=== PATIENT | female | born 1945 | race Caucasian/White ===

== ENCOUNTER 2018-12-09 08:16 | Inpatient (IN) ==
[2018-12-09] MEDS ORDERED: dilTIAZem HCl 5 MG/ML 5 ML VIAL IV STA (08:30)
[2018-12-09] MEDS ORDERED: dilTIAZem HCl 5 MG/ML 5 ML VIAL IV ONE (08:31)
[2018-12-09 08:47] LABS: Basophils # (auto) 0.01 K/uL (0-0.2); Basophils % (auto) 0.3 %; Eosinophils # (auto) 0.09 K/uL (0-0.5); Hematocrit (blood only) 43.1 % (37-47); Immature Granulocytes # (auto) 0.01 K/uL (0.00-0.02); Immature Granulocytes % (auto) 0.3 %; Lymphocytes # (auto) 0.86 K/uL (1.2-3.4); Lymphocytes % (auto) 28.6 %; Mean Corpuscular Hgb Conc 34.8 g/dL (32-36); Mean Corpuscular Volume 92.3 fL (80-100); Mean Platelet Volume 9.3 fL (7.4-10.4); Monocytes # (auto) 0.25 K/uL (0.11-0.59); Monocytes % (auto) 8.3 %; Neutrophils # (auto) 1.79 K/uL (1.4-6.5); Neutrophils % (auto) 59.5 %; Platelet Count 168 K/uL (130-400); RDW Coefficient of Variation 12.8 % (11.5-14.5); RDW Standard Deviation 42.8 fL (36.4-46.3); Red Blood Count 4.67 M/uL (4.2-5.4); White Blood Count 3.01 K/uL (4.8-10.8)
[2018-12-09 08:55] LABS: iSTAT Creatinine 0.8 mg/dl (0.6-1.3); iSTAT Ionized Calcium 1.09 mmol/l (1.12-1.32); iSTAT Potassium 3.7 mEq/L (3.3-5.0)
[2018-12-09 09:04] LABS: Alanine Aminotransferase 33 U/L (12-78); Albumin Level 3.9 gm/dl (3.4-5.0); Aspartate Aminotransferase 21 U/L (15-37); BUN Creatinine Ratio 21.1 (10-20); Blood Urea Nitrogen 17 mg/dl (7-18); Calcium 8.9 mg/dl (8.5-10.1); Carbon Dioxide 25 mmol/L (21-32); Chloride 113 mmol/L (98-107); Est GFR (African American) 87.3; Est GFR (Non-African American) 75.3; Glucose 94 mg/dl (70-99); Potassium 3.7 mmol/L (3.5-5.1); Sodium 145 mmol/L (136-145)
[2018-12-09] MEDS ORDERED: MAGNESIUM SULFATE / D5W 1 GM/100 ML BAG IV ONE (09:06)
[2018-12-09 09:07] LABS: Albumin Globulin Ratio 1.1 (0.9-2); Alkaline Phosphatase 93 U/L (45-117); Bilirubin,Total 0.4 mg/dl (0.2-1); Globulin 3.5 gm/dl (2.5-4.0); Total Protein 7.4 gm/dl (6.4-8.2)
[2018-12-09] MEDS: dilTIAZem HCl 125 MG in DEXTROSE 5% 100 ML IV SCH ×2 (09:10→12:56)
--- NOTE | 2018-12-09 09:13 | Emergency Department Note ---
ED Provider Note CHIEF COMPLAINT: Rapid heart rate, shortness of breath HISTORY OF PRESENTING ILLNESS: This is a 73-year-old female with past medical history significant for non-Hodgkin's lymphoma (reports in remission, s/p chemo therapy 2006), borderline hypertension, and symptomatic PVCs, who presents to the emergency department via EMS with complaint of racing heartbeat, palpitations, and shortness of breath that started abruptly this morning at about 6:30 AM. Patient states that she was woken up out of sleep by a fire alarm at their hotel, she states that they had to go outside, and then they had to go up several flights of stairs, which seemed to make her symptoms worse. She states that her heart has been racing the entire time. She denies any associated chest pain, dizziness or lightheadedness, syncope, nausea or vomiting, or headaches. She reports that she took a baby aspirin this morning and her also gave her one of his 25 mg metoprolol tablets around 7:30 AM. REVIEW OF SYSTEMS: A complete 10 point review of systems was reviewed with the patient with pertinent positives and negatives as per history of present illness. All else were negative. PAST MEDICAL HISTORY: Non-Hodgkin's lymphoma, borderline hypertension, PVCs SOCIAL HISTORY: With her , denies tobacco use ALLERGIES: Reviewed in chart and with the patient PHYSICAL EXAM: CONSTITUTIONAL: Alert, pleasant and cooperative. Nontoxic-appearing and in no acute distress, but appears anxious and is slightly tachypneic. Mildly dehydrated, but otherwise well appearing and well nourished. HEENT: Normocephalic, atraumatic. PERRL, EOMI. Pharynx normal. Tacky mucous membranes. NECK: Supple, full active range of motion without discomfort. No cervical adeno hetal. RESPIRATORY: Mildly tachypneic, but non-labored breathing. Clear to auscultation bilaterally with no wheezing, crackles, rhonchi or stridor. Equal expansion bilaterally. CARDIOVASCULAR: Tachycardic, irregularly irregular rhythm, with no murmurs, rubs or gallops. Normal peripheral perfusion. No pitting edema. GASTROINTESTINAL: Soft, nontender, nondistended. No palpable masses or HSM. Bowel sounds present in all quadrants. No CVA tenderness bilaterally. MUSCULOSKELETAL: Full range of motion of all joints without discomfort. INTEGUMENTARY: No rash or other significant dermatologic conditions noted. NEUROLOGIC: Alert and oriented X 4 with normal affect. Normal strength and sensation in all 4 extremity's. Normal speech. Normal gait observed. ED COURSE AND MEDICAL DECISION MAKING: CC: Patient presenting with complaint of rapid heart rate, shortness of breath DIFFERENTIAL DIAGNOSIS: Includes, but not limited to cardiac dysrhythmia, pulmonary embolism, acute coronary syndrome, pneumothorax, pneumonia, congestive heart failure, pericarditis, endocarditis, among others. INTERPRETATION OF LABS: Mild leukopenia, no anemia, normal platelets, no significant electrolyte abnormalities, normal renal function, normal liver enzymes and lipase. POC troponin negative. IMAGING: SINGLE VIEW CHEST CLINICAL HISTORY: Atypical chest pain. FINDINGS: An AP, portable, upright chest radiograph is obtained. No prior studies are available for comparison at the time of dictation. The examination is degraded by portable technique and patient rotation. The heart is top normal for projection. The mediastinal contour is within normal limits. The lungs and pleural spaces are clear. No pneumothorax is seen. The skeletal structures are osteopenic. The bony thorax is grossly intact. IMPRESSION: No acute cardiopulmonary abnormality. EKG: Shows atrial fibrillation with rapid ventricular rate of 158 bpm, ST and T wave abnormality noted in the inferior leads by my interpretation. MEDICATION RECONCILIATION: I attest that I have personally reviewed the patient's current medication list. INITIAL VITAL SIGNS REVIEW: I reviewed the patient's initial vital signs and interpret them as follows: T: Afebrile; BP: Normotensive; HR: Significantly tachycardic; RR: Mildly tachypnea; Pulse Ox: Within normal limits on room air. Blood pressure screening: The patient was found to have normal blood pressure on screening and does not require follow-up for repeat blood pressure check. MDM SUMMARY: Patient was evaluated at bedside, history and physical exam performed. Patient is alert and oriented, in no acute distress, but appears anxious and states that she feels short of breath. She is mildly tachypneic. She is not hypoxic or hypotensive. EKG reviewed at bedside, noting atrial fibrillation with RVR with a rate of 158 bpm. Patient was placed on 2 L oxygen nasal cannula as a precaution given her shortness of breath. Irregularly irregular rhythm and tachycardic heart rate noted on exam, distal pulses present in all 4 extremities, no peripheral edema. Lungs are clear. Patient was placed on the residential monitor and monitored throughout the entire extent of their stay. In addition, the patient's pulse oximetry was monitored throughout the entire stay. Orders were placed at bedside for labs, second IV access, POC troponin and BMP, which were reviewed at the bedside and are unremarkable. Patient was given a 10 mg IV bolus of diltiazem, followed by a diltiazem drip. I was in the room during the administration of this medication and did note that the patient's heart rate gradually decreased to a rate in the 110-120s, and she reports improved symptoms. 1 g magnesium sulfate IV was also ordered. A chest x-ray was ordered to evaluate for cardiopulmonary disease, this was reviewed and shows no acute cardiopulmonary abnormality by my interpretation. Patient discussed with Dr. Rehman, who agrees with my assessment, plan, and disposition. Labs reviewed as well as above, no significant lab abnormalities, [id number] troponin is negative. I spoke briefly on the phone with Dr. Deleon, cardiology, who was agreeable to consult on the patient's care if needed. I spoke on the phone with Jaycee Pope PA-C with [facility], who agrees to evaluate the patient for admission. Patient reassessed multiple times throughout ED stay,, and her symptoms have overall been improving. Tachycardia is improving on the diltiazem drip, blood pressure has remained stable. She is no longer tachypneic and has never been hypoxic. She reports she is no longer short of breath and she remains free of any chest pain. The patient and her were updated on all results and plan for admission, they verbalized understanding and were agreeable to this plan. The patient was stable at time of admission. CRITICAL CARE NOTE: I have personally spent greater than 40 minutes of critical care time in the direct management of this patient. This includes bedside care, interpretation of diagnostic studies, and testing, discussion with consultants, patient, and family members, and other required patient management activities. This 40 minutes is in excess of all separately billable procedures. The chart was completed utilizing [employer] Speech voice recognition software. Grammatical errors, random word insertions, pronoun errors, and incomplete sentences are an occasional consequence of this system due to software limitations, ambient noise, and hardware issues. Any formal questions or concerns about the content, text, or information contained within the body of this dictation should be directly addressed to the nurse practitioner for c larification. Impression & Plan Atrial fibrillation with RVR Past Med/Surg History Medical History Obesity (BMI 30.0-34.9) Borderline hypertension Atrial fibrillation with RVR (Acute) Non Hodgkin's lymphoma Family History Other Hypertension Social History Preferred Language: Yi Communication Ability: Effective Beliefs That Will Affect Care: None Current Living Situation: Spouse Other Information That Helps Us Care for You: No Feels Safe at Home: Yes Safety Concerns: Feels Safe At This Time Smoking Status: Never smoker Hx Alcohol Use: No Hx Substance Use: No Results & Data Vital Signs Vital Signs - 24 hr 12/09/18 08:23 12/09/18 08:29 12/09/18 08:30 Temperature Temperature Source Sepsis Recent Fever Within 48 Hours Sepsis Action Taken by Nursing Pulse Rate 161 H 157 H Pulse Rate from SpO2 Sensor 139 H Pulse Rhythm Pulse Strength Respiratory Rate 14 17 Respiratory Effort / Characteristics Respiratory Depth Respiratory Pattern Blood Pressure 117/92 Blood Pressure Mean 100 Blood Pressure Position Pulse Oximetry 100 Oxygen Delivery Method Oxygen Flow Rate 12/09/18 08:36 12/09/18 08:47 12/09/18 08:49 Temperature Temperature Source Sepsis Recent Fever Within 48 Hours Sepsis Action Taken by Nursing Pulse Rate 157 H 158 H 115 H Pulse Rate from SpO2 Sensor 127 H 136 H 111 H Pulse Rhythm Pulse Strength Respiratory Rate 12 12 10 L Respiratory Effort / Characteristics Respiratory Depth Respiratory Pattern Blood Pressure 142/114 H 139/83 107/83 Blood Pressure Mean 123 101 91 Blood Pressure Position Pulse Oximetry 100 100 100 Oxygen Delivery Method Oxygen Flow Rate 12/09/18 08:51 12/09/18 08:53 12/09/18 08:55 Temperature Temperature Source Sepsis Recent Fever Within 48 Hours Sepsis Action Taken by Nursing Pulse Rate 127 H 129 H 132 H Pulse Rate from SpO2 Sensor 122 H 118 H 138 H Pulse Rhythm Pulse Strength Respiratory Rate 18 11 L 15 Respiratory Effort / Characteristics Respiratory Depth Respiratory Pattern Blood Pressure 129/68 115/79 145/78 H Blood Pressure Mean 88 91 100 Blood Pressure Position Pulse Oximetry 100 100 100 Oxygen Delivery Method Oxygen Flow Rate 12/09/18 08:57 12/09/18 08:59 12/09/18 09:00 Temperature Temperature Source Sepsis Recent Fever Within 48 Hours Sepsis Action Taken by Nursing Pulse Rate 132 H 130 H 121 H Pulse Rate from SpO2 Sensor 104 H 125 H 119 H Pulse Rhythm Pulse Strength Respiratory Rate 19 8 L 16 Respiratory Effort / Characteristics Respiratory Depth Respiratory Pattern Blood Pressure 104/81 106/88 Blood Pressure Mean 88 94 Blood Pressure Position Pulse Oximetry 100 100 100 Oxygen Delivery Method Oxygen Flow Rate 12/09/18 09:01 12/09/18 09:03 12/09/18 09:11 Temperature Temperature Source Sepsis Recent Fever Within 48 Hours Sepsis Action Taken by Nursing Pulse Rate 133 H 100 H 138 H Pulse Rate from SpO2 Sensor 126 H 110 H Pulse Rhythm Pulse Strength Respiratory Rate 23 23 13 Respiratory Effort / Characteristics Respiratory Depth Respiratory Pattern Blood Pressure 125/86 128/94 133/76 Blood Pressure Mean 99 105 95 Blood Pressure Position Pulse Oximetry 100 99 Oxygen Delivery Method Oxygen Flow Rate 12/09/18 09:17 12/09/18 09:21 12/09/18 09:30 Temperature 36.9 C Temperature Source Oral Sepsis Recent Fever Within 48 Hours No Sepsis Action Taken by Nursing No Action Required Pulse Rate 160 H 143 H 137 H Pulse Rate from SpO2 Sensor Pulse Rhythm Irregular Pulse Strength Normal Respiratory Rate 24 18 22 Respiratory Effort / Characteristics Non-Labored Spontaneous Spontaneous Short of Breath Respiratory Depth Normal Respiratory Pattern Regular Regular Blood Pressure 117/92 108/85 Blood Pressure Mean 100 92 Blood Pressure Position Sitting Pulse Oximetry 100 Oxygen Delivery Method Room Air Room Air Oxygen Flow Rate 2 12/09/18 09:31 12/09/18 09:46 12/09/18 10:06 Temperature Temperature Source Sepsis Recent Fever Within 48 Hours Sepsis Action Taken by Nursing Pulse Rate 132 H 124 H 117 H Pulse Rate from SpO2 Sensor 117 H 110 H 116 H Pulse Rhythm Pulse Strength Respiratory Rate 15 14 19 Respiratory Effort / Characteristics Respiratory Depth Respiratory Pattern Blood Pressure 107/77 134/59 L 110/86 Blood Pressure Mean 87 84 94 Blood Pressure Position Pulse Oximetry 100 99 98 Oxygen Delivery Method Oxygen Flow Rate 12/09/18 10:17 12/09/18 10:30 12/09/18 10:31 Temperature Temperature Source Sepsis Recent Fever Within 48 Hours Sepsis Action Taken by Nursing Pulse Rate 124 H 116 H 115 H Pulse Rate from SpO2 Sensor 123 H 83 99 H Pulse Rhythm Pulse Strength Respiratory Rate 21 12 15 Respiratory Effort / Characteristics Respiratory Depth Respiratory Pattern Blood Pressure 125/84 106/72 Blood Pressure Mean 97 83 Blood Pressure Position Pulse Oximetry 98 99 99 Oxygen Delivery Method Oxygen Flow Rate Laboratory Data Result diagrams: 12/09/18 08:39 12/09/18 08:39 Lab Results 12/09/18 12/09/18 12/09/18 Range/Units 08:39 08:39 08:41 WBC 3.01 L (4.8-10.8) K/uL RBC 4.67 (4.2-5.4) M/uL Hgb 15.0 (12.0-16.0) g/dL POC Hgb (12.0-16.0) g/dl Hct 43.1 (37-47) % POC Hct (37-47) % MCV 92.3 (80-100) fL MCH 32.1 (25-34) pg MCHC 34.8 (32-36) g/dL RDW Std Deviation 42.8 (36.4-46.3) fL RDW Coeff of Sascha 12.8 (11.5-14.5) % Plt Count 168 (130-400) K/uL MPV 9.3 (7.4-10.4) fL Immature Gran % (Auto) 0.3 % Neut % (Auto) 59.5 % Lymph % (Auto) 28.6 % Esmeralda % (Auto) 8.3 % Eos % (Auto) 3.0 % Baso % (Auto) 0.3 % Immature Gran # (Auto) 0.01 (0.00-0.02) K/uL Neut # (Auto) 1.79 (1.4-6.5) K/uL Lymph # (Auto) 0.86 L (1.2-3.4) K/uL Esmeralda # (Auto) 0.25 (0.11-0.59) K/uL Eos # (Auto) 0.09 (0-0.5) K/uL Baso # (Auto) 0.01 (0-0.2) K/uL POC Sodium (135-144) mEq/L Sodium 145 (136-145) mmol/L POC Potassium (3.3-5.0) mEq/L Potassium 3.7 (3.5-5.1) mmol/L POC Chloride (101-112) mEq/L Chloride 113 H (98-107) mmol/L Carbon Dioxide 25 (21-32) mmol/L POC Total CO2 (24-31) mEq/l Anion Gap 8.0 (3-11) POC Anion Gap (16-25) mmol/L POC BUN (7-18) mg/dl BUN 17 (7-18) mg/dl Creatinine 0.79 (0.6-1.2) mg/dl POC Creatinine (0.6-1.3) mg/dl Est Cr Clr Drug Dosing Not Reportable Est GFR ( Amer) 87.3 Est GFR (Non-Af Amer) 75.3 BUN/Creatinine Ratio 21.1 H (10-20) Glucose 94 (70-99) mg/dl POC Glucose (other) (70-99) mg/dl Calcium 8.9 (8.5-10.1) mg/dl POC Ioniz Calcium Rachel (1.12-1.32) mmol/l Total Bilirubin 0.4 (0.2-1) mg/dl AST 21 (15-37) U/L ALT 33 (12-78) U/L Alkaline Phosphatase 93 (45-117) U/L POC Troponin I < 0.03 (0-0.045) ng/ml Total Protein 7.4 (6.4-8.2) gm/dl Albumin 3.9 (3.4-5.0) gm/dl Globulin 3.5 (2.5-4.0) gm/dl Albumin/Globulin Ratio 1.1 (0.9-2) Lipase 195 (73-393) U/L 12/09/18 Range/Units 08:43 WBC (4.8-10.8) K/uL RBC (4.2-5.4) M/uL Hgb (12.0-16.0) g/dL POC Hgb 15.0 (12.0-16.0) g/dl Hct (37-47) % POC Hct 44 (37-47) % MCV (80-100) fL MCH (25-34) pg MCHC (32-36) g/dL RDW Std Deviation (36.4-46.3) fL RDW Coeff of Sascha (11.5-14.5) % Plt Count (130-400) K/uL MPV (7.4-10.4) fL Immature Gran % (Auto) % Neut % (Auto) % Lymph % (Auto) % Esmeralda % (Auto) % Eos % (Auto) % Baso % (Auto) % Immature Gran # (Auto) (0.00-0.02) K/uL Neut # (Auto) (1.4-6.5) K/uL Lymph # (Auto) (1.2-3.4) K/uL Esmeralda # (Auto) (0.11-0.59) K/uL Eos # (Auto) (0-0.5) K/uL Baso # (Auto) (0-0.2) K/uL POC Sodium 146 H (135-144) mEq/L Sodium (136-145) mmol/L POC Potassium 3.7 (3.3-5.0) mEq/L Potassium (3.5-5.1) mmol/L POC Chloride 107 (101-112) mEq/L Chloride (98-107) mmol/L Carbon Dioxide (21-32) mmol/L POC Total CO2 23 L (24-31) mEq/l Anion Gap (3-11) POC Anion Gap 21.0 (16-25) mmol/L POC BUN 17 (7-18) mg/dl BUN (7-18) mg/dl Creatinine (0.6-1.2) mg/dl POC Creatinine 0.8 (0.6-1.3) mg/dl Est Cr Clr Drug Dosing Est GFR ( Amer) Est GFR (Non-Af Amer) BUN/Creatinine Ratio (10-20) Glucose (70-99) mg/dl POC Glucose (other) 99 (70-99) mg/dl Calcium (8.5-10.1) mg/dl POC Ioniz Calcium Rachel 1.09 L (1.12-1.32) mmol/l Total Bilirubin (0.2-1) mg/dl AST (15-37) U/L ALT (12-78) U/L Alkaline Phosphatase (45-117) U/L POC Troponin I (0-0.045) ng/ml Total Protein (6.4-8.2) gm/dl Albumin (3.4-5.0) gm/dl Globulin (2.5-4.0) gm/dl Albumin/Globulin Ratio (0.9-2) Lipase (73-393) U/L Administered Medications Diltiazem HCl 125 mg/ Dextrose 125 mls @ 10 mls/hr IV .[id number] [facility]; Protocol Stop: 01/08/19 08:29 Last Titration: 12/09/18 16:50 Dose: 0 mg/hr, 0 mls/hr Documented by: [id number] Titration: 07/27/19 15:24 Dose: 0 mg/hr, 0 mls/hr Documented by: [id number] Admin: 12/09/18 12:56 Dose: Not Given Documented by: [id number] Titration: 12/09/18 10:15 Dose: 10 mg/hr, 10 mls/hr Documented by: [id number] Admin: 12/09/18 09:10 Dose: 5 mg/hr, 5 mls/hr Documented by: [id number] Cosigned by: [id number] Heparin Sodium/Dextrose (Heparin Sodium/Dextrose) 25,000 units in 500 mls @ 21 mls/hr IV .[id number] [facility]; Protocol Stop: 01/08/19 10:59 Last Titration: 12/09/18 16:50 Dose: 0 units/hr, 0 mls/hr Documented by: [id number] Cosigned by: [id number] Admin: 12/09/18 11:02 Dose: 1,050 units/hr, 21 mls/hr Documented by: [id number] Cosigned by: [id number] Discontinued Medications Diltiazem HCl (Cardizem) Confirm Administered Dose 25 mg IV .STK-MED ONE Stop: 12/09/18 08:32 Last Admin: 12/09/18 09:25 Dose: Not Given Documented by: [id number] Diltiazem HCl (Cardizem) 10 mg IV NOW STA Stop: 12/09/18 08:31 Last Admin: 12/09/18 09:10 Dose: 10 mg Documented by: [id number] Cosigned by: [id number] Heparin Sodium/Dextrose () 1 ea IV ONE ONE; Protocol Stop: 12/09/18 10:48 Last Admin: 12/09/18 11:03 Dose: Not Given Documented by: [id number] Magnesium Sulfate/Dextrose (Magnesium Sulfate / D5w) 1 gm in 100 mls @ 100 mls/hr IV ONE ONE Stop: 12/09/18 10:05 Last Infusion: 12/09/18 10:50 Dose: 0 mls/hr Documented by: [id number] Admin: 12/09/18 09:37 Dose: 100 mls/hr Documented by: [id number] Discharge Plan Visit Data *Final* Discharge Date/Time: 12/09/18 11:15 Chief Complaint: Cardiac Assessment ED Provider: Sherie,Raul ED Midlevel Provider: Annette Fischer Discharge Problem: Atrial fibrillation with RVR Patient Disposition: Admitted As Inpatient Discharge Instructions Interventions: ED Discharge Assessment Last Done: 12/09/18 11:15
--- NOTE | 2018-12-09 09:27 | History & Physical Report ---
Date of Service December 09, 2018 Assessment & Plan (1) Atrial fibrillation with RVR: -Admit to telemetry -Maintain Cardizem bolus/drip -Initiate heparin drip, no bolus - likely will tolerate NOAC upon d/c. 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 -Cardiology consult - follows with cards in [facility] -HR maintaining around 110-120s while at bedside -Patient is not on any antihypertensives or blood thinning agents at home -Initial troponin negative, trending x2 more sets -2D echo ordered -Oxygen 2L via NC currently, baseline is room air -Noted patient received 1 dose of metoprolol 25 mg, unknown tartrate versus succinate this morning as given by her prior to arrival. -PT/OT consults (2) Borderline hypertension: -Maintained via diet and exercise as outpatient, not on any antihypertensive medications -Monitor (3) NHL (non-Hodgkin's lymphoma): -Initially diagnosed in 2006, follows with [facility] in [place]. Dr. Escalante is oncologist - last follow up was in October 2018. -In remission s/p 6 cycles R CHOP, Rituxan x2 years (4) Obesity (BMI 30.0-34.9): -Diet and exercise discussed with patient at bedside, reinforce upon discharge (5) DVT prophylaxis: -Teds, heparin drip Dispo: Patient from home, likely discharge within 1-2d. History of Present Illness Primary Care Provider: NO PCP This is 73 yo F with PMHx of NHL originally diagnosed in 2006, status post chemotherapy with RCHOP X6 cycles, and Rituxan x2 years following, now in remission, borderline hypertension, obesity with BMI of 30.5 who presents with acute onset of heart palpitations and shortness of breath. Patient notes that she is in town with her visiting from [place], and was staying at the [facility] her. At approximately 3 AM fire alarm went off, waking her from sleep. 1 hour prior to this she did smell some sort of electrical heat, and had turned off her AC unit. Whenever she heard the fire alarm she was abruptly afraid and went into a fight or flight reaction. Patient notes that upon exiting down stairwell she had difficulty with her breathing and felt her heart was racing, and could see her chest beating. After getting down out of the stairwell her gave her a metoprolol tablet. She believes this was a 25 mg tablet but is unable to tell me for sure. She has had a history of panic attacks but reports that deep breathing and calming herself down has worked in the past. She reports that 2 days ago patient had dental work on the left upper second molar where a crown was replaced due to sensitivity to sweets. She denies any fevers, sweats or chills. Patient denies lightheadedness, dizziness, chest pain. In the ER patient was started on a diltiazem bolus/drip. Her heart rate maintains in the 110s during my visit. HR max = 150-175. She has a negative troponin. Allergies Allergy/AdvReac Type Severity Reaction Status Date / Time bacitracin Allergy Hives Verified 12/09/18 12:45 [From Neosporin ([id number])] latex Allergy Hives Verified 12/09/18 12:44 neomycin Allergy Hives Verified 12/09/18 12:45 [From Neosporin ([id number])] perfume Allergy Hives Verified 12/09/18 12:47 polymyxin B Allergy Hives Verified 12/09/18 12:45 [From Neosporin ([id number])] strawberry Allergy Hives Verified 12/09/18 12:50 Sulfa (Sulfonamide Allergy Hives Verified 12/09/18 12:45 Antibiotics) vancomycin Allergy Rash Verified 12/09/18 12:46 Home Medications Home Medications Medication Instructions Recorded Confirmed Type apixaban [Eliquis] 5 mg PO BID #60 tab 12/09/18 Rx metoprolol succinate 50 mg PO HS #30 tab 12/09/18 Rx Past Med/Surg History Medical History Obesity (BMI 30.0-34.9) Borderline hypertension Atrial fibrillation with RVR Non Hodgkin's lymphoma Family History Other Hypertension Social History Preferred Language: Occitan Communication Ability: Effective Beliefs That Will Affect Care: None Current Living Situation: Spouse Other Information That Helps Us Care for You: No Feels Safe at Home: Yes Safety Concerns: Feels Safe At This Time Smoking Status: Never smoker Hx Alcohol Use: No Hx Substance Use: No Review of Systems Review of Systems: Constitutional: No fever, sweats or chills Eyes: No diplopia, no worsening or blurred vision ENT: normal hearing, no trouble swallowing Respiratory: As per HPI. No cough, sputum, dyspnea at rest or on exertion Cardiovascular: As per HPI Abdomen: No pain, nausea, vomiting, diarrhea or constipation Musculoskeletal: No joint pain, calf pain, swelling Neurologic: No weakness, numbness/tingling, or balance problems Psychiatric: No anxiety or depression, + panic attack history Skin: No rash or itch Physical Exam Physical Exam: General: awake, alert, no apparent distress, appears much younger than stated age Head: Normocephalic, atraumatic ENT: PERRL, EOMI, no pharyngeal exudate, mucous membranes moist Chest: Clear to auscultation, on 2L via NC, no adventitious breath sounds Cardiac: Irregularly irregular, rapid, no murmur, no JVD, normal peripheral pulses Abdominal: NABS x 4 quadrants, soft, nontender to palpation, no rebound, guarding or tenderness Extremities: Normal inspection, no peripheral edema or erythema, calfs nontender to palpation Psych: Normal mood and affect Neuro: AAO x 3, strength intact bilaterally and related 5/5, no motor deficits, speech is clear, no peripheral sensory deficits Skin: no rash or erythema Results & Data Vital Signs (Past 12 Hours) Vital Signs Temp Pulse Resp BP Pulse Ox 12/09/18 09:17 36.9 C 160 H 24 117/92 100 Code Status & VTE Plan Code Status Full code-discussed with patient at bedside Supervising Physician Co-Signing Physician Notes After the APC's encounter, I examined the patient and interviewed the patient during my face to face encounter. Patient will be admitted to [facility] for ATRIAL Fibrillation with RVR. Patient will continue on diltiazem. Due to her CHADSVASC score being [address] heparin. Will consult cardiology. I reviewed above note and agree with it aside from what I documented above. PG Care Time/CCT Total # of Minutes Spent Total Time Spent with Patient: Total time spent is greater than 50% in coordination of care (as documented) at patient's floor/unit and/or counseling patient:
--- NOTE | 2018-12-09 09:45 | XRay Report ---
SINGLE VIEW CHEST CLINICAL HISTORY: Atypical chest pain. FINDINGS: An AP, portable, upright chest radiograph is obtained. No prior studies are available for c omparison at the time of dictation. The examination is degraded by portable technique and patient rot ation. The heart is top normal for projection. The mediastinal contour is within normal limits. The lungs and pleural spaces are clear. No pneumothorax is seen. The skeletal structures are osteopenic. The bony thorax is grossly intact. IMPRESSION: No acute cardiopulmonary abnormality. Electronically signed by: Davon Wood M.D. 12/09/2018 9:44 AM
[2018-12-09] MEDS ORDERED: ONDANSETRON INJ 2 MG/ML 2 ML VIAL IV PRN (10:42)
[2018-12-09] MEDS ORDERED: ACETAMINOPHEN 325 MG TAB PO PRN (10:42)
[2018-12-09] MEDS ORDERED: Heparin IV Standard *NO* Bolus IV ONE (10:47)
[2018-12-09] MEDS ORDERED: HEPARIN SODIUM/DEXTROSE 25,000 UNITS/500 ML BAG IV SCH (11:00)
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
[2018-12-09] MEDS ORDERED: METOPROLOL SUCC 50MG EXT REL TAB PO STA (17:58)
[2018-12-09] MEDS ORDERED: APIXABAN 5 MG TABLET PO ONE (18:00)
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
== END 2018-12-09 18:38 | disposition home or self-care (01) | DRG 310 ==
LOC: ED 08:16 → 2S 10:37
DX: Z92.21 Personal history of antineoplastic chemotherapy; R03.0 Elevated blood-pressure reading, without diagnosis of hypertension; E66.9 Obesity, unspecified; Z85.72 Personal history of non-Hodgkin lymphomas; Z82.49 Family history of ischemic heart disease and other diseases of the circulatory system; Z68.30 Body mass index [BMI] 30.0-30.9, adult; I48.91 Unspecified atrial fibrillation; Z91.040 Latex allergy status; Z88.2 Allergy status to sulfonamides; Z88.1 Allergy status to other antibiotic agents